=== PATIENT | female | born 1980 | race Caucasian/White ===

== ENCOUNTER 2022-09-07 16:17 | Emergency (ER) | payer OTHER ==
[~2022-09-07] VITALS: Ht 180.3 cm; Wt 114.4 kg
[2022-09-07] MEDS ORDERED: TIZANIDINE HCL2 MG PO (17:01)
[2022-09-07] MEDS ORDERED: REPAGLINIDE2 MG PO (17:01)
[2022-09-07] MEDS ORDERED: VICTOZA 3-0.6 MG/0.1 SUB-Q (17:01)
[2022-09-07] MEDS ORDERED: PRAMIPEXOLE DIHY1 MG PO (17:01)
[2022-09-07] MEDS ORDERED: OMEPRAZOLE20 MG PO (17:01)
[2022-09-07] MEDS ORDERED: ONDANSETRON ODT4 MG PO (19:28)
== END 2022-09-07 19:36 | disposition home or self-care (01) ==
LOC: ED 16:17
DX: R10.9 Unspecified abdominal pain (principal); R11.0 Nausea; E11.9 Type 2 diabetes mellitus without complications; K21.9 Gastro-esophageal reflux disease without esophagitis; Z88.8 Allergy status to other drugs, medicaments and biological substances; Z79.899 Other long term (current) drug therapy
CPT/HCPCS: 36415; 74176; 80053; 81001; 85025; 96374; 96375; 99284-25; J1885; J2405